=== PATIENT | male | born 1970 | race African-American/Black ===

== ENCOUNTER 2018-08-06 08:05 | Observation (INO) | payer MEDICARE ==
[2018-08-06 08:26] VITALS: BMI 27.2
--- NOTE | 2018-08-06 08:43 | PDOC ---
History of Present Illness - General Chief Complaint: Blood Pressure Problem Stated Complaint: BLOOD PRESSURE PROBLEM, BLURRY VISION History Source: Patient Exam Limitations: No Limitations - History of Present Illness Initial Comments: 08/06/18 09:02 47 yo M with a hx of HTN (no compliance with medication; name unknown) presents to the emergency department with concerns with high blood pressure. He states his BP was elevated to 191/116 2 days ago (had 1x vomiting episode) and took 1 anti-HTN medication (name unknown last night) with a BP of 158/94 this morning. This morning, he was complaining of headache and blurry vision that have since resolved. Subsequently, he also has complaints of a intermittent lower left chest wall pain, 4/10, burning sensation, without radiation, and has been occurring at least for 1 week. He had a stress test for chest pain 4 years ago and a cath 2 years ago without knowing the results. Endorses that he gets SOB and diaphoresis with these episodes (not currently). Denies acid reflux. Denies the following: fever, chills, nausea, vomiting, abdominal pain, dysuria, hematuria, diarrhea, hematochezia, melena, and leg pain/swelling. Past History - Past Medical History Allergies/Adverse Reactions: Allergies Allergy/AdvReac Type Severity Reaction Status Date / Time Iodinated Contrast- Oral and Allergy wheezing, Verified 08/06/18 08:18 IV Dye difficulty breathing Penicillins AdvReac Difficulty Verified 08/06/18 08:18 Breathing, wheezing Home Medications: Ambulatory Orders Diltiazem HCl [Diltiazem 24Hr ER] 180 mg PO DAILY 30 Days #30 cap.er.24h Lisinopril [Prinivil] 10 mg PO DAILY #30 tablet 09/04/17 Azithromycin [Zithromax -] 250 mg PO UTDICT #6 tab 09/06/17 Amlodipine Besylate [Norvasc -] 5 mg PO DAILY 30 Days #30 tablet 08/07/18 Pantoprazole Sodium [Protonix -] 40 mg PO DAILY #30 tablet.ec 08/07/18 Amlodipine Besylate [Norvasc -] 10 mg PO DAILY 30 Days #30 tablet 08/08/18 Cardiac Disorders: No (stents) COPD: No HTN: Yes - Immunization History Immunization Up to Date: No (no flu) - Suicide/Smoking/Psychosocial Hx Smoking History: Current every day smoker Number of Cigarettes Smoked Daily: 2 Information on smoking cessation initiated: No 'Breaking Loose' booklet given: 09/12/14 Hx Alcohol Use: No Drug/Substance Use Hx: No Substance Use Type: None Review of Systems - Review of Systems Able to Perform ROS?: Yes Is the patient limited Iraqi proficient: No Constitutional: Yes: Diaphoresis. No: Chills, Fever HEENTM: Yes: Recent change in vision. No: Ear Pain, Nose Pain, Throat Pain, Throat Swelling, Mouth Pain Respiratory: Yes: Shortness of Breath. No: Cough, Orthopnea, Hemoptysis Cardiac (ROS): Yes: Chest Pain. No: Lightheadedness, Palpitations, Syncope, Chest Tightness ABD/GI: No: Constipated, Diarrhea, Difficulty Swallowing, Nausea, Poor Appetite , Poor Fluid Intake, Rectal Bleeding, Vomiting, Indigestion, Abdominal cramping , Tarry Stools : No: Burning, Dysuria, Frequency, Hematuria, Incontinence Musculoskeletal: No: Back Pain, Joint Pain, Neck Pain Integumentary: No: Rash Neurological: Yes: Headache. No: Numbness Psychiatric: No: Stressors Endocrine: No: Change in Weight Hematologic/Lymphatic: No: Anemia *Physical Exam - Vital Signs Last Vital Signs Temp Pulse Resp BP Pulse Ox 98.1 F 61 18 147/94 100 08/06/18 08:05 08/06/18 08:05 08/06/18 08:05 08/06/18 08:05 08/06/18 08:05 - Physical Exam General Appearance: Yes: Nourished, Appropriately Dressed. No: Apparent Distress HEENT: positive: EOMI, IVON, Normal ENT Inspection, Normal Voice, Symmetrical, TMs Normal, Pharynx Normal. negative: Scleral Icterus (R), Scleral Icterus (L) , Pharyngeal Erythema, Sinus Tenderness, Excessive drooling Neck: positive: Trachea midline. negative: Tender, Lymphadenopathy (R), Lymphadenopathy (L), Tender lateral, Tender midline Respiratory/Chest: positive: Lungs Clear, Normal Breath Sounds. negative: Chest Tender, Respiratory Distress, Accessory Muscle Use, Decreased Breath Sounds, Paradoxal Breathing, Crackles, Rales, Rhonchi, Stridor, Wheezing Cardiovascular: positive: Regular Rhythm, Regular Rate, S1, S2. negative: Systolic Murmur Gastrointestinal/Abdominal: positive: Normal Bowel Sounds, Flat, Soft. negative : Tender, Organomegaly, Pulsatile Mass Lymphatic: negative: Adenopathy Musculoskeletal: positive: Normal Inspection. negative: CVA Tenderness Extremity: positive: Normal Capillary Refill, Normal Inspection, Normal Range of Motion. negative: Tender, Cyanosis, Swelling, Calf Tenderness Integumentary: positive: Normal Color, Dry, Warm. negative: Cold, Clammy, Rash , Swelling Neurologic: positive: clipman II-XII NML intact, Fully Oriented, Alert, Normal Mood/ Affect, Normal Response, Motor Strength 5/5. negative: Sensory Deficit Moderate Sedation - Procedure Monitoring Vital Signs: Procedure Monitoring Vital Signs Temperature 98.1 F 08/06/18 08:05 Pulse Rate 61 08/06/18 08:05 Respiratory Rate 18 08/06/18 08:05 Blood Pressure 147/94 08/06/18 08:05 O2 Sat by Pulse Oximetry (%) 100 08/06/18 08:05 ED Treatment Course - LABORATORY CBC & Chemistry Diagram: 08/08/18 06:32 08/08/18 06:32 Medical Decision Making - Medical Decision Making 47 yo M with a hx of HTN (no compliance with medication; name unknown) presents to the emergency department with concerns with high blood pressure. Initial vitals": Initial Vital Signs Temp Pulse Resp BP Pulse Ox 98.1 F 61 18 147/94 100 08/06/18 08:05 08/06/18 08:05 08/06/18 08:05 08/06/18 08:05 08/06/18 08:05 *DC/Admit/Observation/Transfer - Discharge Dispostion Disposition: HOME Condition at time of disposition: Stable - Prescriptions - Referrals - Patient Instructions - Post Discharge Activity
[2018-08-06] MEDS ORDERED: ASPIRIN 81 MG CHEWABLE TABLETS PO ONE (09:20)
[2018-08-06] MEDS ORDERED: NITROGLYCERIN SUBLINGUAL 1/150 0.4 MG TAB SL ONE ×2 (09:20→09:31)
--- NOTE | 2018-08-06 09:36 | PDOC ---
Attending Attestation - Resident Resident Name: Carlos Bush - ED Attending Attestation I have performed the following: I have examined & evaluated the patient, The case was reviewed & discussed with the resident, I agree w/resident's findings & plan, Exceptions are as noted - HPI HPI: 08/06/18 09:31 47 yo male h/o htn, , prior smoking, noncompliant with medication here with c/o headache and blurry vision and intermittent chest pain for one month. pt states he has had a cath and stress in the past but cant remember the results. 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 pain described intermittent, usually while working, relieved with rest, occasionally at rest. last had it this am. does not have pain currently. pt states he was visiting a friend in the hospital his age who suffered a stroke, had nurse check his bp, and was elevated 190/ 116, and he was scared so came to ed. this am 158/94. no sob. no leg swelling. does have family h/o of mom with CABG in 50's. - Physicial Exam PE: 08/06/18 09:33 awake alert lungs clear bilaterally heart rrr no mrg abd soft nt nd. ext wwp no edema. no calf tenderness. no edema. 2 + symmetric pulses. nuero alert oriented x 3. 5/5 all four ext. - Medical Decision Making 08/06/18 09:35 differential acs, hypertensive emergency vs. urgency. end organ damage. lung process. plan cxr ekg trop cbc lytres. will give ntg for elevated bp and asa. pt chart revew has had a stress here, old ekg similar in appearance from 2016. will consult cardiology. Heart Score/ECG Review #1 General ECG Interpretation: Sinus Rhythm, Normal Rate, Normal Intervals Compared to previous ECG there are: No significant change (comparison 04/22/17 TWI I, AVL, II, III, AVF, V2 - V5.)
[2018-08-06] MEDS ORDERED: ASPIRIN COATED 81 MG TABLET.EC ONE (09:46)
[2018-08-06] MEDS ORDERED: NITROGLYCERIN SUBLINGUAL 1/150 0.4 MG TAB ONE (09:46)
[2018-08-06 11:03] LABS: BASO % 1.3 % (0-2.0); EOS % 4.2 % (0-4.5); HEMATOCRIT 43.9 % (35.4-49); HEMOGLOBIN 14.2 GM/dL (11.7-16.9); MCH 29.2 pg (25.7-33.7); MCHC 32.3 g/dl (32.0-35.9); MEAN CELL VOLUME 90.1 fl (80-96); MEAN PLT VOLUME 9.4 fl (7.5-11.1); MONO % 10.5 % (3.8-10.2); PLATELET COUNT 199 K/MM3 (134-434); RBC 4.87 M/mm3 (4.00-5.60); RDW 13.2 % (11.9-15.9); WHITE BLOOD COUNT 4.1 K/mm3 (4.0-10.0)
[2018-08-06 11:10] LABS: INR 1.04 (0.83-1.09); PROTHROMBIN TIME (PATIENT) 12.3 SEC (9.7-13.0)
[2018-08-06 11:12] LABS: ACTIVATED PTT 32.3 SECONDS (25.2-36.5)
[2018-08-06 11:26] LABS: ALBUMIN 3.8 g/dl (3.4-5.0); ALK PHOS 61 U/L (45-117); ANION GAP 8 MMOL/L (8-16); BILIRUBIN,TOTAL 0.9 mg/dL (0.2-1); BLOOD UREA NITROGEN 18 mg/dL (7-18); CALCIUM 8.8 mg/dL (8.5-10.1); CHLORIDE 107 mmol/L (98-107); CO2 26 mmol/L (21-32); CREATININE 1.3 mg/dL (0.55-1.3); GLUCOSE,RANDOM 83 mg/dL (74-106); POTASSIUM 4.5 mmol/L (3.5-5.1); SGOT/AST 23 U/L (15-37); SGPT/ALT 41 U/L (13-61); SODIUM 141 mmol/L (136-145); TOT PROT 7.3 g/dl (6.4-8.2)
--- NOTE | 2018-08-06 14:45 | HP ---
CHIEF COMPLAINT: PCP: HISTORY OF PRESENT ILLNESS: 47 yo M with PMHx of HTN and CAD presents with one month history of progressive chest pain and increased BP. He states for the past month he has been experiencing 5/10 constant non-radiating left chest wall burning sensation. He states that pain can last for up to a day and is associated with diaphoresis. Not related to activity and can occur at rest. He denies alleviating or aggravating factors. Pain is not reproducible on palpation. 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 Today SBP was 191 on home monitor which prompted trip to ER. He has not been on any medication for some time secondary to poor compliance and insurance issues. In 2014 he was seen here and stress test was done and was positive for lateral wall ischemia and he was transferred to [facility] for cath which he states was negative for significant blockage. He denies MORENO, palpitations, abdominal pain, nausea, vomiting, fever or chills. No recent illness. ER course was notable for: (1)EGK shows (2)Trop (-) x1 (3)ASA and Nitro administered. Recent Travel: Denies PAST MEDICAL HISTORY:HTN, CAD PAST SURGICAL HISTORY:cardiac cath [facility] 2014 Social History: Smoking: quit 4 yrs ago. only smokes an occasional cigar. Alcohol:social Drugs: denies Family History: Mother with CABG in her 50's Allergies Iodinated Contrast- Oral and IV Dye Allergy (Verified 08/06/18 08:18) wheezing, difficulty breathing had one episode when he was a child ,verified from his mother Penicillins Adverse Reaction (Verified 08/06/18 08:18) Difficulty Breathing, wheezing swelling of throat HOME MEDICATIONS: Home Medications Medication Instructions Recorded Lidocaine 5% Patch [Lidoderm Patch 1 patch TP DAILY #7 patch 07/29/16 -] Oxycodone HCl/Acetaminophen 1 - 2 tab PO Q6H PRN #12 tab MDD 4 07/29/16 [Percocet 5-325 mg Tablet] Valacyclovir HCl [Valtrex] 1,000 mg PO TID #21 tablet 07/29/16 REVIEW OF SYSTEMS CONSTITUTIONAL: Absent: fever, chills, diaphoresis, generalized weakness, malaise, loss of appetite, weight change HEENT: Absent: rhinorrhea, nasal congestion, throat pain, throat swelling, difficulty swallowing, mouth swelling, ear pain, eye pain, visual changes CARDIOVASCULAR: chest pain Absent: , syncope, palpitations, irregular heart rate, lightheadedness, peripheral edema RESPIRATORY: Absent: cough, shortness of breath, dyspnea with exertion, orthopnea, wheezing, stridor, hemoptysis GASTROINTESTINAL: Absent: abdominal pain, abdominal distension, nausea, vomiting, diarrhea, constipation, melena, hematochezia GENITOURINARY: Absent: dysuria, frequency, urgency, hesitancy, hematuria, flank pain, genital pain MUSCULOSKELETAL: Absent: myalgia, arthralgia, joint swelling, back pain, neck pain SKIN: Absent: rash, itching, pallor HEMATOLOGIC/IMMUNOLOGIC: Absent: easy bleeding, easy bruising, lymphadenopathy, frequent infections ENDOCRINE: Absent: unexplained weight gain, unexplained weight loss, heat intolerance, cold intolerance NEUROLOGIC: Absent: headache, focal weakness or paresthesias, dizziness, unsteady gait, seizure, mental status changes, bladder or bowel incontinence PSYCHIATRIC: Absent: anxiety, depression, suicidal or homicidal ideation, hallucinations. PHYSICAL EXAMINATION Vital Signs - 24 hr 08/06/18 08:05 Temperature 98.1 F Pulse Rate 61 Respiratory 18 Rate Blood Pressure 147/94 O2 Sat by Pulse 100 Oximetry (%) GENERAL: AAOx3, NAD HEAD: NCAT EYES: PERRLA, EOMI, sclera anicteric, conjunctiva clear. No lid lag. EARS, NOSE, THROAT: Moist mucous membranes. NECK: supple, no JVD LUNGS: CTAB. No wheezes, and no crackles. No accessory muscle use. HEART: RRR, normal S1 and S2 without murmur, rub or gallop. ABDOMEN: Soft, NTND,NABS, no guarding, no rebound, no masses. MUSCULOSKELETAL: Normal range of motion at all joints. No bony deformities or tenderness. No CVA tenderness. LOWER EXTREMITIES: 2+ pulses, warm, well-perfused. No calf tenderness. No peripheral edema. NEUROLOGICAL: Cranial nerves II-XII intact. Normal speech. gait not observed PSYCHIATRIC: Cooperative. Good eye contact. Appropriate mood and affect. SKIN: Warm, dry, normal turgor, no rashes or lesions noted, normal capillary refill. Laboratory Results - last 24 hr 08/06/18 08/06/18 08/06/18 10:30 10:30 10:30 WBC 4.1 RBC 4.87 Hgb 14.2 Hct 43.9 MCV 90.1 MCH 29.2 MCHC 32.3 RDW 13.2 Plt Count 199 MPV 9.4 Absolute Neuts (auto) 1.7 Neutrophils % 41.0 L Lymphocytes % 43.0 H Monocytes % 10.5 H Eosinophils % 4.2 Basophils % 1.3 Nucleated RBC % 0 PT with INR 12.30 INR 1.04 PTT (Actin FS) 32.3 Sodium 141 Potassium 4.5 Chloride 107 Carbon Dioxide 26 Anion Gap 8 BUN 18 Creatinine 1.3 Creat Clearance w eGFR 58.67 Random Glucose 83 Calcium 8.8 Total Bilirubin 0.9 AST 23 ALT 41 Alkaline Phosphatase 61 Creatine Kinase 320 H Creatine Kinase Index 0.9 CK-MB (CK-2) 2.9 Troponin I < 0.02 Total Protein 7.3 Albumin 3.8 Blood Type Antibody Screen 08/06/18 08/06/18 10:30 12:11 WBC RBC Hgb Hct MCV MCH MCHC RDW Plt Count MPV Absolute Neuts (auto) Neutrophils % Lymphocytes % Monocytes % Eosinophils % Basophils % Nucleated RBC % PT with INR INR PTT (Actin FS) Sodium Potassium Chloride Carbon Dioxide Anion Gap BUN Creatinine Creat Clearance w eGFR Random Glucose Calcium Total Bilirubin AST ALT Alkaline Phosphatase Creatine Kinase Creatine Kinase Index CK-MB (CK-2) Troponin I Total Protein Albumin Blood Type O POSITIVE O POSITIVE Antibody Screen Negative ASSESSMENT/PLAN: 47 yo M with PMHx of HTN and CAD presents with chest pain and hypertension placed on observation to telemetry for further management. Problem List - Problem (1) Chest pain Assessment/Plan: may represent ACS vs. PE * Place on observation to telemetry * Cardiology consulted * trend trops x 2 Q6H * ASA given in ED * Nitro SL PRN pain * repeat EKG in AM * D-Dimer to r/o possible PE. * Echo pending. * Lipid profile pending. (2) Hypertension Assessment/Plan: He appears to have been on Lisinopril previously * Will restart Lisinopril 5mg PO daily * continuous monitoring. (3) DVT prophylaxis Visit type - Emergency Visit Emergency Visit: Yes Care time: The patient presented to the Emergency Department on the above date and was hospitalized for further evaluation of their emergent condition. - New Patient This patient is new to me today: Yes Date on this admission: 08/06/18 - Critical Care Critical Care patient: No
--- NOTE | 2018-08-06 14:59 | PN ---
Teaching Attending Note Name of Resident: Quinn Carolina ATTENDING PHYSICIAN STATEMENT I saw and evaluated the patient. I reviewed the resident's note and discussed the case with the resident. I agree with the resident's findings and plan as documented. SUBJECTIVE: Comfortable chest pain on Left infrmamarry area OBJECTIVE: Vital Signs Period Temp Pulse Resp BP Sys/Milner Pulse Ox Last 24 Hr 98.1 F-98.5 F 61-65 16-18 130-147/86-94 96-100 HEENT: Mm moist, no anemia, PERRLA EOMI NECK: No JVd No Bruit CHEST: non tender CTA B/L CVS: S1S2 R no m/g/r ABD: No distention non tender Bs + EXT: No edema feet, no calf tenderness, Pulses + MEDICAL BILLING COORDINATOR: AOX3 non focal CBC, BMP 08/06/18 10:30 08/06/18 10:30 Trop I -ve X1 CXR: No infiltrate EKG: LVHS at 60 no interval changes ASSESSMENT AND PLAN: 47 yrs Problem List - Problems (1) Chest pain Assessment/Plan: Present with Left sided chest Pian previous stress test + on 09/14 shows Lat Ischemai as per patient subsequently had Cath at [facility] and no intervention was done unsure about result, 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 this chest pain is atypical no c/o SOB LE swelling , yesterday BP was very high at home he took previously prescribed BP pills today BP is in acceptable range considering abnormal EKG and risk factors admit to Tele for obs , Cardiology consult, serial Trop I ASA add BP meds HR 60 start on Lisinopril and Procardia 30 mg Lipid panel, HBA1C, ECHO normal EF, F/U D Jerod if + will consider CTA Code(s): R07.9 - CHEST PAIN, UNSPECIFIED (2) Hypertension Assessment/Plan: Add Procardia and Lisinopril Code(s): I10 - ESSENTIAL (PRIMARY) HYPERTENSION Qualifiers: Hypertension type: essential hypertension Qualified Code(s): I10 - Essential (primary) hypertension (3) Abnormal EKG Assessment/Plan: at base line LVHS Code(s): R94.31 - ABNORMAL ELECTROCARDIOGRAM [ECG] [EKG] (4) Left ventricular hypertrophy Assessment/Plan: as per EKG but ECHO shows normal valve, wall thickness and EF Code(s): I51.7 - CARDIOMEGALY
--- NOTE | 2018-08-06 15:00 | ECHO ---
Name: REE BOOTH Exam:Adult Echocardiogram Study Date: 08/06/2018 02:08 PM Age: 47 yrs Reason For Study: SYNCOPE Height: 74 in Weight: 212 lb BSA: 2.2 m2 MMode/2D Measurements & Calculations IVSd: 1.1 cm Ao root diam: 3.0 cm LVIDd: 3.6 cm ACS: 2.0 cm LVIDs: 2.7 cm LVPWd: 1.5 cm EDV(Teich): 53.1 ml LVOT diam: 2.0 cm ESV(Teich): 26.6 ml RV S Thomas: 13.4 cm/sec Doppler Measurements & Calculations Med Peak E' Thomas: 9.1 cm/sec Lat Peak E' Thomas: 6.9 cm/sec Left Ventricle Left ventricular systolic function is normal. Ejection Fraction = 55-60%. Right Ventricle The right ventricle is normal in size and function. Atria Normal left and right atrial size and function. Mitral Valve The mitral valve is normal in structure and function. There is no mitral valve stenosis. There is mil d mitral regurgitation. Tricuspid Valve The tricuspid valve is normal in structure and function. There is mild tricuspid regurgitation. Aortic Valve No hemodynamically significant valvular aortic stenosis. No aortic regurgitation is present. Pulmonic Valve The pulmonic valve is not well seen, but is grossly normal. There is no pulmonic valvular stenosis. T here is no pulmonic valvular regurgitation. Great Vessels The aortic root is normal size. Pericardium/Pleura There is no pericardial effusion. Interpretation Summary Left ventricular systolic function is normal. Ejection Fraction = 55-60%. The right ventricle is normal in size and function. There is mild mitral regurgitation. There is mild tricuspid regurgitation. No hemodynamically significant valvular aortic stenosis. There is no pericardial effusion. MD Ellison *Nina 08/06/2018 02:59 PM
[2018-08-06] MEDS ORDERED: FLU VACCINE QUAD 60 MCG/0.5 ML (MDV 18-19) IM ONE (17:28)
--- NOTE | 2018-08-06 19:05 | EKG ---
Test Reason : Blood Pressure : / mmHG Vent. Rate : 060 BPM Atrial Rate : 060 BPM P-R Int : 202 ms QRS Dur : 098 ms QT Int : 424 ms P-R-T Axes : 039 036 204 degrees QTc Int : 424 ms NORMAL SINUS RHYTHM LEFT VENTRICULAR HYPERTROPHY WITH REPOLARIZATION ABNORMALITY ABNORMAL ECG WHEN COMPARED WITH ECG OF 29-JUL-2016 05:54, NO SIGNIFICANT CHANGE WAS FOUND Confirmed by COBY PORTILLO MD ([id number]) on 08/06/2018 7:05:08 PM Referred By: Confirmed By:COBY PORTILLO MD
[2018-08-07 08:12] LABS: EOS % 4.7 % (0-4.5); HEMATOCRIT 44.8 % (35.4-49); HEMOGLOBIN 14.4 GM/dL (11.7-16.9); LYMPH % 47.2 % (8-40); MCH 29.4 pg (25.7-33.7); MCHC 32.2 g/dl (32.0-35.9); MEAN CELL VOLUME 91.2 fl (80-96); MEAN PLT VOLUME 9.2 fl (7.5-11.1); MONO % 10.4 % (3.8-10.2); NEUT % 36.7 % (42.8-82.8); PLATELET COUNT 192 K/MM3 (134-434); RBC 4.91 M/mm3 (4.00-5.60); RDW 13.2 % (11.9-15.9); WHITE BLOOD COUNT 4.3 K/mm3 (4.0-10.0)
--- NOTE | 2018-08-07 09:46 | PN ---
Progress Note, Physician Chief Complaint: No chest pain - Current Medication List Current Medications: Active Medications Aspirin (Asa -) 81 mg PO DAILY MITRA Metoprolol Tartrate (Lopressor -) 12.5 mg PO BID MITRA - Objective Vital Signs: Vital Signs Temperature 98.2 F 08/07/18 05:00 Pulse Rate 73 08/07/18 05:00 Respiratory Rate 20 08/07/18 05:00 Blood Pressure 146/94 08/07/18 05:00 O2 Sat by Pulse Oximetry (%) 100 08/07/18 06:00 HEENT: Mm moist, no anemia, PERRLA EOMI NECK: No JVd No Bruit CHEST: non tender CTA B/L CVS: S1S2 R no m/g/r ABD: No distention non tender Bs + EXT: No edema feet, no calf tenderness, Pulses + TRANSACTION COORDINATOR: AOX3 non focal Labs: CBC, BMP 08/07/18 06:50 INR, PTT INR 1.04 (0.83-1.09) 08/06/18 10:30 Problem List - Problems (1) Chest pain Assessment/Plan: Atypica chest pain previous cath -ve serial CE and ECHOunremarkable EKG remained non dynamic evaluted by Cardiology consult recommended PPI Code(s): R07.9 - CHEST PAIN, UNSPECIFIED (2) Hypertension Assessment/Plan: Add Procardia and Lisinopril Code(s): I10 - ESSENTIAL (PRIMARY) HYPERTENSION Qualifiers: Hypertension type: essential hypertension Qualified Code(s): I10 - Essential (primary) hypertension (3) Abnormal EKG Assessment/Plan: at base line LVHS Code(s): R94.31 - ABNORMAL ELECTROCARDIOGRAM [ECG] [EKG] (4) Left ventricular hypertrophy Assessment/Plan: as per EKG but ECHO shows normal valve, wall thickness and EF Code(s): I51.7 - CARDIOMEGALY (5) JOLLY (acute kidney injury) Assessment/Plan: Rising BUN Creat IV Hydration F/U BMP in am Code(s): N17.9 - ACUTE KIDNEY FAILURE, UNSPECIFIED
[2018-08-07 09:54] LABS: ALBUMIN 3.6 g/dl (3.4-5.0); ALK PHOS 58 U/L (45-117); ANION GAP 8 MMOL/L (8-16); BILIRUBIN,TOTAL 1.4 mg/dL (0.2-1); BLOOD UREA NITROGEN 19 mg/dL (7-18); CALCIUM 8.8 mg/dL (8.5-10.1); CHLORIDE 105 mmol/L (98-107); CHOLESTEROL 180 mg/dL (50-200); CO2 29 mmol/L (21-32); CREATININE 1.5 mg/dL (0.55-1.3); GLUCOSE,RANDOM 82 mg/dL (74-106); HDL CHOLESTEROL 40 mg/dL (40-60); MAGNESIUM 2.5 mg/dL (1.8-2.4); SGOT/AST 22 U/L (15-37); SGPT/ALT 39 U/L (13-61); SODIUM 143 mmol/L (136-145); TOT PROT 7.1 g/dl (6.4-8.2); TRIGLYCERIDES 104 mg/dL (0-150)
[2018-08-07] MEDS ORDERED: ASPIRIN 81 MG CHEWABLE TABLETS PO SCH (10:00)
[2018-08-07] MEDS ORDERED: METOPROLOL TARTRATE 25 MG TABLET (FP) PO SCH (10:00)
--- NOTE | 2018-08-07 11:34 | CON.CARD ---
Consult Consult Specialty:: cardio - History of Present Illness Chief Complaint: cp History of Present Illness: 47 M here with CP. was here with different cp sx's in 2015. had nuclear stress test suggestive of ischemia. transferred for cath by dr george/craig ([facility]), pt states told no blockages and no stent place. he never followed up with them after cath (confirmed today by dr george). sees no pmd. was given meds on cath discharge but stopped taking them. 2 wks ago began feeling burning sensation localized to epigastrium/LUQ. not radiating. assctd diaphoresis with this sometimes. no assctd LH/sob. doesn't exercise or climb stairs, doesn't [address] however the pain is not exacerbated by lifting things or routine exertion/ activity. comes and goes on its own at rest frequently during these 2 wks, present much/ most of each day. ASSOCIATED WITH SOUR TASTE IN HIS MOUTH. hasn't noticed relation to timing of type of foods eaten home bp's recently started being checked, up to 190 + cigs: quit 1 mo ago social etoh no drugs +HTN--not treated denies HPL, DM FH: mother CABG ? 60s yo (still living) - Past Medical History [employer]: Yes: Other Cardio/Vascular: Yes: HTN - Alcohol/Substance Use Hx Alcohol Use: No - Smoking History Smoking history: Current every day smoker Have you smoked in the past 12 months: Yes Aproximately how many cigarettes per day: 2 Home Medications - Allergies Allergies/Adverse Reactions: Allergies Allergy/AdvReac Type Severity Reaction Status Date / Time Iodinated Contrast- Oral and Allergy wheezing, Verified 08/06/18 08:18 IV Dye difficulty breathing Penicillins AdvReac Difficulty Verified 08/06/18 08:18 Breathing, wheezing - Home Medications Home Medications: Ambulatory Orders NK [No Known Home Medication] 08/06/18 Family Disease History - Family Disease History Family Disease History: Heart Disease: Mother (MS-->CABG age 51) Review of Systems - Review of Systems Constitutional: denies: Chills, Fever Eyes: denies: Eye Pain HENT: denies: Nasal Congestion Neck: denies: Stiffness Cardiovascular: denies: Palpitations Respiratory: denies: Orthopnea, PND Gastrointestinal: denies: Diarrhea, Rectal Bleeding Genitourinary: denies: Burning, Hematuria Musculoskeletal: denies: Muscle Pain Integumentary: denies: Rash Neurological: denies: Numbness, Seizure, Syncope Endocrine: denies: Excessive Sweating Hematology/Lymphatic: denies: Excessive Bleeding Vital Signs: Vital Signs Temperature 98.2 F 08/07/18 05:00 Pulse Rate 73 08/07/18 05:00 Respiratory Rate 20 08/07/18 05:00 Blood Pressure 146/94 08/07/18 05:00 O2 Sat by Pulse Oximetry (%) 100 08/07/18 06:00 Constitutional: Yes: Well Nourished, No Distress Eyes: No: Sclera Icterus HENT: No: Nasal Congestion Neck: No: Decreased ROM Respiratory: Yes: CTA Bilaterally. No: Accessory Muscle Use Gastrointestinal: Yes: Normal Bowel Sounds. No: Distention, Hepatomegaly, Palpable Mass, Tenderness Cardiovascular: Yes: Regular Rate and Rhythm JVD: No Carotid Bruit: No PMI: Non-Displaced Heart Sounds: Yes: S1, S2. No: Gallop Murmur: No: Systolic Murmur, Diastolic Murmur Musculoskeletal: Yes: Other (No kyphosis) Extremities: No: Cool, Cyanosis Edema: No Peripheral Pulses: 2+ Left Carotid, 2+ Right Carotid, 2+ Left Doralis Pedis, 2+ Right Dorsalis Pedis Integumentary: No: Jaundice Neurological: Yes: Alert, Oriented (x3) Psychiatric: No: Agitated - Other Data Labs, Other Data: CBC, BMP 08/07/18 06:50 08/07/18 06:50 INR, PTT INR 1.04 (0.83-1.09) 08/06/18 10:30 Troponin, BNP 08/06/18 08/06/18 19:15 21:45 Troponin I < 0.02 < 0.02 Troponin, BNP 08/06/18 08/06/18 19:15 21:45 Troponin I < 0.02 < 0.02 Assessment/Plan ECG: NSR. LVH with marked repol abnormalities--not signif changed vs priors in 2014 and 2015 CXR: clear lungs/pleura, normal mediastinum Echo 08/06/18: nl LVSF. no LVH reported. nl RV. nl LA. nl valves. normal aorta root. no peric effusion. tele: NSR atypical CP: -sx's highly suggestive of GERD, with associated sour taste in mouth -trop neg x 3 -very unlikely cardiac ischemia given reportedly benign cath 3 yrs ago, young pt with low ASCVD risk, chronic nonexertional sx present much of the day for 2 wks straight with no clinical deterioration and normal cardiac enzymes -start PPI -will attempt to retrieve prior cath report (may need to wait until thursday) -if pt sx's resolve with PPI he may be able to be discharged with outpt f/u abnormal ECG: -? normal variant ( young male) -rule out non-obstructive HCM including apical variant. -echo here no signs asymmetric LVH per report, no mitral LETITIA -rec outpt f/u with us, cardiac MRI to confirm no occult HCM pattern HTN: -not compliant with PMD or cardio f/u -self-d/c'd prior meds -elevated at home recently, ? reactive sec to ongoing pain and anxiety about his heart -bp's here 130s > 140-150. observe trend HPL: -LDL 120. low CVD risk. would not rec long-term statin unless signif subclinical athero burden on prior cath JOLLY: -creat 1.3-->1.5 here -was 1.1 on prior admit in 2015 -? hypertensive etiology (burden of untreated HTN not documented in him) -plan per hospitalist
[2018-08-07] MEDS: PANTOPRAZOLE 40 MG TABLET (FP) PO SCH (12:09)
--- NOTE | 2018-08-07 14:10 | DS ---
Physical Examination Vital Signs: Vital Signs Temperature 97.5 F L 08/07/18 11:47 Pulse Rate 62 08/07/18 11:47 Respiratory Rate 20 08/07/18 11:47 Blood Pressure 153/94 08/07/18 11:47 O2 Sat by Pulse Oximetry (%) 100 08/07/18 09:00 Constitutional: Yes: Well Nourished, No Distress, Calm HENT: Yes: Atraumatic, Normocephalic, Other (MM moist no anemia) Cardiovascular: Yes: Regular Rate and Rhythm. No: Bruit, JVD, Gallop, Murmur, S1, S2 Respiratory: Yes: Regular, CTA Bilaterally Gastrointestinal: Yes: Normal Bowel Sounds, Soft Musculoskeletal: No: Back Pain, Joint Stiffness Extremities: No: Calf Tenderness Edema: No Peripheral Pulses: Left Doralis Pedis: 2+, Right Dorsalis Pedis: 2+ Neurological: Yes: Alert, Oriented, Cran Nerves II-XII Intact Labs: C CBC,CMP WBC 4.3 K/mm3 (4.0-10.0) 08/07/18 06:50 RBC 4.91 M/mm3 (4.00-5.60) 08/07/18 06:50 Hgb 14.4 GM/dL (11.7-16.9) 08/07/18 06:50 Hct 44.8 % (35.4-49) 08/07/18 06:50 MCV 91.2 fl (80-96) 08/07/18 06:50 MCH 29.4 pg (25.7-33.7) 08/07/18 06:50 MCHC 32.2 g/dl (32.0-35.9) 08/07/18 06:50 RDW 13.2 % (11.9-15.9) 08/07/18 06:50 Plt Count 192 K/MM3 (134-434) 08/07/18 06:50 MPV 9.2 fl (7.5-11.1) 08/07/18 06:50 Absolute Neuts (auto) 1.6 K/mm3 (1.5-8.0) 08/07/18 06:50 Neutrophils % 36.7 % (42.8-82.8) L 08/07/18 06:50 Lymphocytes % 47.2 % (8-40) H 08/07/18 06:50 Monocytes % 10.4 % (3.8-10.2) H 08/07/18 06:50 Eosinophils % 4.7 % (0-4.5) H 08/07/18 06:50 Basophils % 1.0 % (0-2.0) 08/07/18 06:50 Nucleated RBC % 0 % (0-0) 08/07/18 06:50 Sodium 143 mmol/L (136-145) 08/07/18 06:50 Potassium 5.0 mmol/L (3.5-5.1) 08/07/18 06:50 Chloride 105 mmol/L (98-107) 08/07/18 06:50 Carbon Dioxide 29 mmol/L (21-32) 08/07/18 06:50 Anion Gap 8 MMOL/L (8-16) 08/07/18 06:50 BUN 19 mg/dL (7-18) H 08/07/18 06:50 Creatinine 1.5 mg/dL (0.55-1.3) H 08/07/18 06:50 Creat Clearance w eGFR 49.74 (>60) 08/07/18 06:50 Random Glucose 82 mg/dL (74-106) 08/07/18 06:50 Hemoglobin A1c % 6.2 % (4.2-6.3) 08/07/18 06:50 Calcium 8.8 mg/dL (8.5-10.1) 08/07/18 06:50 Phosphorus 4.0 mg/dL (2.5-4.9) 08/07/18 06:50 Magnesium 2.5 mg/dL (1.8-2.4) H 08/07/18 06:50 Total Bilirubin 1.4 mg/dL (0.2-1) H 08/07/18 06:50 AST 22 U/L (15-37) 08/07/18 06:50 ALT 39 U/L (13-61) 08/07/18 06:50 Alkaline Phosphatase 58 U/L (45-117) 08/07/18 06:50 Creatine Kinase 320 IU/L (26-308) H 08/06/18 10:30 Creatine Kinase Index 0.9 % (0.0-5.0) 08/06/18 10:30 CK-MB (CK-2) 2.9 ng/mL (0.5-3.6) 08/06/18 10:30 Troponin I < 0.02 ng/ml (0.00-0.05) 08/06/18 21:45 Total Protein 7.1 g/dl (6.4-8.2) 08/07/18 06:50 Albumin 3.6 g/dl (3.4-5.0) 08/07/18 06:50 Triglycerides 104 mg/dL (0-150) 08/07/18 06:50 Cholesterol 180 mg/dL (50-200) 08/07/18 06:50 Total LDL Cholesterol 125 mg/dL (5-100) H 08/07/18 06:50 HDL Cholesterol 40 mg/dL (40-60) 08/07/18 06:50 TSH 1.11 uIU/ml (0.358-3.74) 08/07/18 06:50 EKG : LVHS at 60 same as base line CXR: No cardiomegaly no congestion ECHO: Normal EF no wall motion abnormality Discharge Summary Reason For Visit: CHEST PAIN Current Active Problems Atypical Chest Pain HTN Abnormal EKG LVH Hospital Course: 47 yrs old man admitted with atypical CP patient has H/O HTN and LVHS pattern EKG in the past evaluated, previous stress test + on 08/2014 at [facility] shows Lat Ischemai as per patient subsequently had Cath at [facility] and no intervention was done and prescribed with BP meds, patient is a truck shop mechanic drives long distances this chest pain is atypical no c/o SOB LE swelling , yesterday BP was at home he took previously prescribed BP pills today BP is in acceptable range considering abnormal EKG and risk factors admit to Tele for obs , serial Trop I X3 normal ,D Dimmers -ve .ECG: NSR. LVH with marked repol abnormalities--not signif changed vs priors in 2014 and 2015CXR: clear lungs/ pleura, normal mediating, Echo 08/06/18: nl LVSF. no LVH reported. nl RV. nl LA. nl valves. normal aorta root. no pericardial effusion.Evaluated by Cardiology consult recommended highly suggestive of GERD, very unlikely cardiac ischemia given reportedly benign cath 3 yrs ago, young pt with low ASCVD risk, chronic non-exertional sx present much of the day for 2 wks straight with no clinical deterioration and normal cardiac enzymes, started PPI, patient symptoms resolved outpt f/u with us, cardiac MRI to confirm no occult HCM pattern. JOLLY improved on Hyration. Condition: Stable - Instructions Diet, Activity, Other Instructions: Low salt low cholesterol Referrals: Kwasi Tripathi MD [Staff Physician] - 2 Weeks Tonny Pepper MD [Staff Physician] - 1 Month Disposition: HOME - Home Medications Comprehensive Discharge Medication List: Ambulatory Orders Amlodipine Besylate [Norvasc -] 10 mg PO DAILY 30 Days #30 tablet 08/07/18 Pantoprazole Sodium [Protonix -] 40 mg PO DAILY #30 tablet.ec 08/07/18
[2018-08-07] MEDS ORDERED: amLODIPine BESYLATE 5 MG TABLET (FP) PO SCH (14:15)
[2018-08-07] MEDS ORDERED: SODIUM CHLORIDE 1,000 ML IV SCH (17:15)
--- NOTE | 2018-08-07 21:16 | EKG ---
Test Reason : Blood Pressure : / mmHG Vent. Rate : 071 BPM Atrial Rate : 071 BPM P-R Int : 184 ms QRS Dur : 096 ms QT Int : 418 ms P-R-T Axes : 048 023 173 degrees QTc Int : 454 ms NORMAL SINUS RHYTHM LEFT VENTRICULAR HYPERTROPHY WITH REPOLARIZATION ABNORMALITY ABNORMAL ECG WHEN COMPARED WITH ECG OF 06-AUG-2018 09:06, NO SIGNIFICANT CHANGE WAS FOUND Confirmed by COBY PORTILLO MD ([id number]) on 08/07/2018 9:16:37 PM Referred By: Confirmed By:COBY PORTILLO MD
[2018-08-08 08:22] LABS: BASO % 0.9 % (0-2.0); EOS % 4.8 % (0-4.5); HEMATOCRIT 40.3 % (35.4-49); HEMOGLOBIN 14.1 GM/dL (11.7-16.9); LYMPH % 41.7 % (8-40); MCH 31.3 pg (25.7-33.7); MCHC 34.9 g/dl (32.0-35.9); MEAN CELL VOLUME 89.7 fl (80-96); MEAN PLT VOLUME 9.7 fl (7.5-11.1); NEUT % 42.6 % (42.8-82.8); PLATELET COUNT 200 K/MM3 (134-434); RBC 4.49 M/mm3 (4.00-5.60); RDW 13.1 % (11.9-15.9); WHITE BLOOD COUNT 4.8 K/mm3 (4.0-10.0)
[2018-08-08 08:53] LABS: ANION GAP 9 MMOL/L (8-16); BLOOD UREA NITROGEN 16 mg/dL (7-18); CALCIUM 8.3 mg/dL (8.5-10.1); CHLORIDE 109 mmol/L (98-107); CO2 24 mmol/L (21-32); CREATININE 1.3 mg/dL (0.55-1.3); GLUCOSE,RANDOM 83 mg/dL (74-106); POTASSIUM 4.3 mmol/L (3.5-5.1); SODIUM 142 mmol/L (136-145)
--- NOTE | 2018-08-08 09:37 | PN ---
Progress Note, Physician Chief Complaint: abd pain History of Present Illness: epigastric abd burning resolved completely. no cp. no palpitations. no sob. no syncope - Current Medication List Current Medications: Active Medications Amlodipine Besylate (Norvasc -) 5 mg PO DAILY [facility] Last Admin: 08/07/18 15:15 Dose: 5 mg Sodium Chloride (Normal Saline -) 1,000 mls @ 75 mls/hr IV ASDIR [facility] Last Admin: 08/07/18 17:33 Dose: 75 mls/hr Pantoprazole Sodium (Protonix -) 40 mg PO DAILY [facility] Last Admin: 08/07/18 12:09 Dose: 40 mg - Objective Vital Signs: Vital Signs Temperature 97.8 F 08/08/18 05:19 Pulse Rate 62 08/08/18 05:19 Respiratory Rate 20 08/08/18 05:19 Blood Pressure 125/85 08/08/18 05:19 O2 Sat by Pulse Oximetry (%) 100 08/08/18 05:19 Constitutional: Yes: Well Nourished, No Distress, Calm Cardiovascular: Yes: Regular Rate and Rhythm, S1, S2. No: Gallop, Murmur Respiratory: Yes: Regular, CTA Bilaterally. No: Accessory Muscle Use, Rales, Wheezes Extremities: No: Cold Edema: No Neurological: Yes: Alert, Oriented Psychiatric: No: Agitated Labs: CBC, BMP 08/08/18 06:32 08/08/18 06:32 INR, PTT INR 1.04 (0.83-1.09) 08/06/18 10:30 Assessment/Plan ECG: NSR. LVH with marked repol abnormalities--not signif changed vs priors in 2014 and 2015 CXR: clear lungs/pleura, normal mediastinum Echo 08/06/18: nl LVSF. no LVH reported. nl RV. nl LA. nl valves. normal aorta root. no peric effusion. tele: NSR atypical CP: -sx's c/w GERD, with associated sour taste in mouth and resolved with PPI -trop neg x 3 -very unlikely cardiac ischemia given reportedly benign cath 3 yrs ago, young pt with low ASCVD risk, chronic nonexertional sx present much of the day for 2 wks straight with no clinical deterioration and normal cardiac enzymes -rpt stress test not indicated given low pre-test prob. pt advised to f/u as outpt (with us or, if finances require, with [facility]) abnormal ECG: -? normal variant ( young male) -rule out non-obstructive HCM including apical variant. -echo here no signs asymmetric LVH per report, no mitral LETITIA -pt advised that to be confident there is no genetic heart condition that can be dangerous in the future, he eventually needs to have cardiac MRI. however given he has no sx's (and also specifically denies family h/o suspicious syncope /sudden to me today), and normal echo, this is an elective workup. -he states he is in the process of purchasing health insurance and verbalizes understanding of the importance of eventually following up with us in office to arrange for completion of the w/u HTN: -not compliant with PMD or cardio f/u -self-d/c'd prior meds -elevated at home recently, ? reactive sec to ongoing pain and anxiety about his heart -bp's here 130s > 140-150--continue amlodipine HPL: -LDL 120. low CVD risk. would not rec long-term statin unless signif subclinical athero burden on prior cath JOLLY: -creat 1.31.5 here, stable
[2018-08-08] MEDS ORDERED: amLODIPine BESYLATE 5 MG TABLET (FP) PO SCH (09:43)
[2018-08-08] MEDS: PANTOPRAZOLE 40 MG TABLET (FP) PO SCH (10:05)
[2018-08-08 10:10] VITALS: BP 153/98; PULSE 66; TEMP 98.1
== END 2018-08-08 10:55 | disposition home or self-care (01) ==
LOC: JER 08:05 → JERBED 13:19 → J4W 17:49
PROVIDERS: ADMIT Internal Medicine; ATTEND Internal Medicine
DX: R07.9 Chest pain, unspecified (principal); I11.9 Hypertensive heart disease without heart failure; R94.31 Abnormal electrocardiogram [ECG] [EKG]; N17.9 Acute kidney failure, unspecified; E78.5 Hyperlipidemia, unspecified; Z98.61 Coronary angioplasty status; F17.210 Nicotine dependence, cigarettes, uncomplicated; Z88.0 Allergy status to penicillin; Z91.041 Radiographic dye allergy status
CPT/HCPCS: 36415; 71046-TC-FY; 80048; 80053; 80061; 82550; 82553; 83036; 83721; 83735; 84100; 84443; 84484; 85025; 85379; 85610; 85730; 86850; 86900; 86901; 93005; 93010; 93306-TC; 99283-25; G0378; J7030

== ENCOUNTER 2018-08-09 22:54 | Emergency (ER) | payer SELFPAY ==
--- NOTE | 2018-08-09 23:15 | PDOC ---
History of Present Illness - General Chief Complaint: Blood Pressure Problem Stated Complaint: BLOOD PRESURE PROBLEM Time Seen by Provider: 08/09/18 23:14 History Source: Patient Exam Limitations: No Limitations - History of Present Illness Initial Comments: 08/09/18 23:32 47 year old male with PMH HTN, GERD presented to ED for high blood pressure. Pt stated he checked his BP today around 3PM and it was in the 160s systolic, he took two amlodipine 10 mg, but his blood pressure continued to increase. He admitted to headache (left sided, constant, throbbing, no alleviating/ aggravating factors, nonradiating) and LUQ pain (constant, burning, nonradiaitng , aggravated by not eating, no alleviating factors). He stated the pain feels similar to his prior GERD. He stated he took his protonix today without relief of symptoms. He denied chest pain, shortness of breath, palpitations, cough, lower extremity swelling, weakness, numbness, tingling. Pt was admitted to [facility] for HTN urgency and LVHS pattern on EKG 08/06/18-. Serial troponins were negative. ECHO 08/06/18 nl LVSF, EF 55-60%. no LVH reported. diagnosed with GERD. Discharged with Amlodipine 10 mg daily and pantoprazole 40 mg daily. Pt did not have PCP, was given one upon discharge, but has not followed up since discharge. Past History - Past Medical History Allergies/Adverse Reactions: Allergies Allergy/AdvReac Type Severity Reaction Status Date / Time Iodinated Contrast- Oral and Allergy wheezing, Verified 08/09/18 23:14 IV Dye difficulty breathing Penicillins AdvReac Difficulty Verified 08/09/18 23:14 Breathing, wheezing Home Medications: Ambulatory Orders Diltiazem HCl [Diltiazem 24Hr ER] 180 mg PO DAILY 30 Days #30 cap.er.24h Lisinopril [Prinivil] 10 mg PO DAILY #30 tablet 09/04/17 Azithromycin [Zithromax -] 250 mg PO UTDICT #6 tab 09/06/17 Amlodipine Besylate [Norvasc -] 5 mg PO DAILY 30 Days #30 tablet 08/07/18 Pantoprazole Sodium [Protonix -] 40 mg PO DAILY #30 tablet.ec 08/07/18 Amlodipine Besylate [Norvasc -] 10 mg PO DAILY 30 Days #30 tablet 08/08/18 Anemia: No Asthma: No Cancer: No Cardiac Disorders: No (stents) CVA: No COPD: No CHF: No Dementia: No Diabetes: No GI Disorders: No Disorders: No HTN: Yes Hypercholesterolemia: No Liver Disease: No Seizures: No Thyroid Disease: No - Surgical History Abdominal Surgery: No Appendectomy: No Cardiac Surgery: Yes (Catheterization w/balloon) Cholecystectomy: No Lung Surgery: No Neurologic Surgery: No Orthopedic Surgery: No - Immunization History Immunization Up to Date: No (no flu) - Suicide/Smoking/Psychosocial Hx Smoking History: Never smoked Have you smoked in the past 12 months: No Number of Cigarettes Smoked Daily: 2 If you are a former smoker, when did you quit?: 08/31/17 'Breaking Loose' booklet given: 09/12/14 Hx Alcohol Use: No Drug/Substance Use Hx: No Substance Use Type: None, Alcohol Hx Substance Use Treatment: No Review of Systems - Review of Systems Able to Perform ROS?: Yes Comments:: 08/09/18 23:35 General: denied fever, chills, night sweats, generalized weakness. HEENT: denied sore throat, rhinorrhea, ear pain. Heart: denied chest pain, palpitations, syncope, lower extremity swelling, diaphoresis. Respiratory: denied shortness of breath, cough, sputum production, hemoptysis. Abdomen: admitted to abdominal pain. denied nausea, vomiting, diarrhea, constipation, blood in stool. : denied dysuria, increased urinary frequency, hematuria, urinary incontinence , flank pain. Back: denied back pain. Musculoskeletal: denied joint pain, muscle pain, joint swelling. Neurological: admitted to headache. denied dizziness, numbness, tingling, weakness. Skin: denied rash, laceration, abrasion. *Physical Exam - Physical Exam Comments: 08/09/18 23:36 Constitutional: Well-nourished, Well-developed, appearing stated age. HEENT: head is normocephalic, atraumatic. EOMI. PERRLA. Neck: supple. Full ROM. Heart: regular rhythm. no murmurs, rubs or gallops. Lungs: clear to auscultation bilaterally. no crackles, rhonchi or wheezing. no stridor. Abdomen: soft, nontender. normal bowel sounds. no rebound, guarding, masses. Extremities: Peripheral pulses intact. No lower extremity edema. Neurological: Alert. Oriented x3. CN2-12 intact. 5/5 strength all extremities. Full sensation all extremities and bilateral face. Romberg negative. Finger to nose normal. Gait normal. Psych: awake, alert, oriented x3. Follows commands. Answers questions appropriately. ED Treatment Course - LABORATORY CBC & Chemistry Diagram: 08/09/18 23:40 08/10/18 00:34 Medical Decision Making - Medical Decision Making 08/09/18 23:36 47 year old male with above PMH presented to ED for HTN associated with epigastric pain and headache. Initial Vital Signs Temp Pulse Resp BP Pulse Ox 97.9 F 81 18 181/116 H 99 08/09/18 23:14 08/09/18 23:14 08/09/18 23:14 08/09/18 23:14 08/09/18 23:14 Afebrile. No tachycardia. No tachypnea. Hypertensive. No hypoxia on room air. Medications ordered: pepcid, maalox, tylenol. Labs ordered: CBC, CMP, BNP, cardiac enzymes Imaging ordered: CXR EKG performed at 2351: rate 76, regular rhythm, normal intervals, normal axis, LVH. Similar to prior 08/07/18. 08/10/18 00:21 CBC WBC 7.0 K/mm3 (4.0-10.0) 08/09/18 23:40 RBC 4.91 M/mm3 (4.00-5.60) 08/09/18 23:40 Hgb 15.2 GM/dL (11.7-16.9) 08/09/18 23:40 Hct 43.6 % (35.4-49) 08/09/18 23:40 MCV 88.7 fl (80-96) 08/09/18 23:40 MCH 30.9 pg (25.7-33.7) 08/09/18 23:40 MCHC 34.8 g/dl (32.0-35.9) 08/09/18 23:40 RDW 12.8 % (11.9-15.9) 08/09/18 23:40 Plt Count 223 K/MM3 (134-434) 08/09/18 23:40 MPV 9.6 fl (7.5-11.1) 08/09/18 23:40 Absolute Neuts (auto) 3.0 K/mm3 (1.5-8.0) 08/09/18 23:40 Neutrophils % 43.4 % (42.8-82.8) 08/09/18 23:40 Lymphocytes % 43.1 % (8-40) H 08/09/18 23:40 Monocytes % 8.0 % (3.8-10.2) 08/09/18 23:40 Eosinophils % 4.5 % (0-4.5) 08/09/18 23:40 Basophils % 1.0 % (0-2.0) 08/09/18 23:40 Nucleated RBC % 0 % (0-0) 08/09/18 23:40 No leukocytosis. No anemia. No thrombocytopenia. 08/10/18 00:40 Lab reported COAGs QNS, jungle top hemolyzed. Labs reordered. CXR: no cardiomegaly. sharp costophrenic angles. no pulmonary vascular congestion. similar to prior 08/06/18. 08/10/18 01:07 Vital Signs Temperature 97.8 F 08/09/18 23:15 Pulse Rate 80 08/09/18 23:15 Respiratory Rate 18 08/09/18 23:15 Blood Pressure 159/106 H 08/10/18 01:05 O2 Sat by Pulse Oximetry (%) 100 08/09/18 23:15 Hypertensive, but improved with pain control. 08/10/18 01:12 CMP Sodium 139 mmol/L (136-145) 08/10/18 00:34 Potassium 3.8 mmol/L (3.5-5.1) 08/10/18 00:34 Chloride 107 mmol/L (98-107) 08/10/18 00:34 Carbon Dioxide 26 mmol/L (21-32) 08/10/18 00:34 Anion Gap 7 MMOL/L (8-16) L 08/10/18 00:34 BUN 19 mg/dL (7-18) H 08/10/18 00:34 Creatinine 1.2 mg/dL (0.55-1.3) 08/10/18 00:34 Creat Clearance w eGFR > 60 (>60) 08/10/18 00:34 Random Glucose 107 mg/dL (74-106) H 08/10/18 00:34 Calcium 8.2 mg/dL (8.5-10.1) L 08/10/18 00:34 Total Bilirubin 0.5 mg/dL (0.2-1) 08/10/18 00:34 AST 25 U/L (15-37) 08/10/18 00:34 ALT 36 U/L (13-61) 08/10/18 00:34 Alkaline Phosphatase 68 U/L (45-117) 08/10/18 00:34 Creatine Kinase 386 IU/L (26-308) H 08/10/18 00:34 Troponin I < 0.02 ng/ml (0.00-0.05) 08/10/18 00:34 B-Natriuretic Peptide 65.3 pg/ml (5-125) 08/10/18 00:34 Total Protein 7.5 g/dl (6.4-8.2) 08/10/18 00:34 Albumin 3.6 g/dl (3.4-5.0) 08/10/18 00:34 No electrolyte abnormalities. No JOLLY. Cr at baseline. CK mildly elevated. Normal troponin. normal BNP. Pt reported improvement of symptoms. Pt given PCP follow up appt with Dr. Tripathi 08/10 at 1030 AM. Pt given information with address and phone number and informed of importance of following up. Pt given copies of lab work. Pt to be discharged. *DC/Admit/Observation/Transfer Diagnosis at time of Disposition: Hypertension, Headache - Discharge Dispostion Condition at time of disposition: Improved Decision to Admit order: No - Referrals Referrals: [facility] [place] [facility] [place] [Provider Group] Kwasi Tripathi MD [Staff Physician] - - Patient Instructions Printed Discharge Instructions: DASH Diet Helps Maintain a Healthy Blood Pressure, Recommendations to Help Prevent High Blood Pressure, DI for High Blood Pressure, Low-Sodium Diet, How to Monitor Your Blood Pressure at Home Additional Instructions: You were seen today for high blood pressure. You lab work was similar to prior lab work done during you admission to the hospital. Your EKG was similar to prior. Your blood pressure reduced with pain control. Take Tylenol over the counter for your headache, take as advised on label. I have set up an appointment with a primary care doctor, Dr. Tripathi, Friday 08/10 at 1030AM. Do not miss this appointment. Return to the Emergency Department for blood pressure >200/100-120, increasing headache, blurry vision, chest pain, shortness of breath, lower leg swelling, or any other new, worsening or concerning symptoms. - Post Discharge Activity
[2018-08-09 23:16] VITALS: BMI 27.6
[2018-08-09] MEDS ORDERED: ACETAMINOPHEN 325 MG TABLET (FP) PO ONE (23:34)
[2018-08-09] MEDS ORDERED: FAMOTIDINE 20 MG/50 ML IVPB 20 MG/50 ML MG IVPB ONE ×2 (23:34→23:55)
[2018-08-09] MEDS ORDERED: MAG HYDROX/AL HYDROX/SIMETH 30 ML UNIT-DOSE CUP PO ONE (23:34)
[2018-08-09] MEDS ORDERED: SODIUM CHLORIDE 1,000 ML IV STA (23:44)
[2018-08-09] MEDS ORDERED: MAG HYDROX/AL HYDROX/SIMETH 30 ML UNIT-DOSE CUP ONE (23:55)
[2018-08-09] MEDS ORDERED: ACETAMINOPHEN 325 MG TABLET (FP) ONE (23:55)
[2018-08-10 00:15] LABS: EOS % 4.5 % (0-4.5); HEMATOCRIT 43.6 % (35.4-49); HEMOGLOBIN 15.2 GM/dL (11.7-16.9); LYMPH % 43.1 % (8-40); MCH 30.9 pg (25.7-33.7); MCHC 34.8 g/dl (32.0-35.9); MEAN CELL VOLUME 88.7 fl (80-96); MEAN PLT VOLUME 9.6 fl (7.5-11.1); NEUT % 43.4 % (42.8-82.8); PLATELET COUNT 223 K/MM3 (134-434); RBC 4.91 M/mm3 (4.00-5.60); RDW 12.8 % (11.9-15.9)
--- NOTE | 2018-08-10 00:35 | PDOC ---
Attending Attestation - Resident Resident Name: Jessi Medina - ED Attending Attestation I have performed the following: I have examined & evaluated the patient, The case was reviewed & discussed with the resident, I agree w/resident's findings & plan - [facility] HPI: 08/10/18 00:33 [place] 47 year old male with PMH HTN, GERD presented to ED for symptomatic hypertension. Pt stated he checked his BP today around 3PM and it was in the 160s systolic, he took two amlodipine 10 mg, but BP increased. ? generalized headache and LUQ pain. He stated the pain feels similar to his GERD. He denied chest pain, shortness of breath, palpitations, cough, lower extremity swelling, weakness, numbness, tingling. - Physicial Exam PE: 08/10/18 00:33 NAD, well appearing, PERRL, EOMI, MMM, nl conjunctiva, anicteric; neck supple. lungs clear, RRR, abdomen soft nontender. PETERSEN x4, no focal neuro deficits. No peripheral edema. normal color for ethnicity, [facility]. - Medical Decision Making 08/10/18 01:50 See HPI for details Vital signs reviewed, +hypertensive Prior notes reviewed, including admissions, discharges and consultations. [facility] without intervention. Pt was admitted to [facility] for HTN and LVHS pattern on EKG 08/06/18-08/08/18. Serial troponins were negative. ECHO 08/06/18 nl LVSF, EF 55-60%. no LVH reported. diagnosed with GERD. Discharged with Amlodipine 10 mg daily and pantoprazole 40 mg daily. Outpatient Cards followup, was seen by Dr Pepper inpatient prior to his discharge yesterday. Likely poor HTN control, took extra dose of amlodipine today, told not to do that and how to measure BP correctly. laboratory results and imaging reviewed, basic labs and lytes wnl, notable for baseline Cr. lytes normal Cardiac panel_neg trop EKG normal sinus rhythm, no interval abnormalities, narrow QRS, ST segments and morphology normal. +LVH Nonspecific T wave abnormalities, repolarization abnormality, TWI diffusely - unchanged from prior. ED course: BP normalizing, 159/106 on recheck, no symptoms, mentating normally, no neuro changes, cp or sob. Dispo: PCP referrals provided, diet modifications, avoid salty or fatty food intake. Instructions provided. Prompt PCP followup indicated, and appt made. 08/10/18 01:52 Heart Score/ECG Review - ECG Impressions Normal ECG: No Comment:: 08/10/18 00:34 EKG normal sinus rhythm, no interval abnormalities, narrow QRS, ST segments and morphology normal. +LVH Nonspecific T wave abnormalities, repolarization abnormality, TWI diffusely - unchanged from prior.
[2018-08-10 00:56] LABS: INR 1.03 (0.83-1.09); PROTHROMBIN TIME (PATIENT) 12.2 SEC (9.7-13.0)
[2018-08-10 00:58] LABS: ACTIVATED PTT 34.6 SECONDS (25.2-36.5)
[2018-08-10 01:04] VITALS: PULSE 80; TEMP 97.8
[2018-08-10 01:05] VITALS: BP 159/106
[2018-08-10 01:09] LABS: ALBUMIN 3.6 g/dl (3.4-5.0); ALK PHOS 68 U/L (45-117); ANION GAP 7 MMOL/L (8-16); BILIRUBIN,TOTAL 0.5 mg/dL (0.2-1); BLOOD UREA NITROGEN 19 mg/dL (7-18); CALCIUM 8.2 mg/dL (8.5-10.1); CHLORIDE 107 mmol/L (98-107); CO2 26 mmol/L (21-32); CREATININE 1.2 mg/dL (0.55-1.3); GLUCOSE,RANDOM 107 mg/dL (74-106); N-TERMINAL BNP 65.3 pg/ml (5-125); POTASSIUM 3.8 mmol/L (3.5-5.1); SGOT/AST 25 U/L (15-37); SGPT/ALT 36 U/L (13-61); SODIUM 139 mmol/L (136-145); TOT PROT 7.5 g/dl (6.4-8.2)
--- NOTE | 2018-08-10 12:57 | EKG ---
Test Reason : Blood Pressure : / mmHG Vent. Rate : 076 BPM Atrial Rate : 076 BPM P-R Int : 156 ms QRS Dur : 096 ms QT Int : 408 ms P-R-T Axes : 044 023 174 degrees QTc Int : 459 ms NORMAL SINUS RHYTHM LEFT VENTRICULAR HYPERTROPHY WITH REPOLARIZATION ABNORMALITY ABNORMAL ECG WHEN COMPARED WITH ECG OF 07-AUG-2018 13:54, NO SIGNIFICANT CHANGE WAS FOUND Confirmed by Navdeep Cantu ([id number]) on 08/10/2018 12:57:09 PM Referred By: Confirmed By:Navdeep Cantu
== END 2018-08-10 01:35 | disposition home or self-care (01) ==
LOC: JER 22:54
PROC: 3E033GC Introduction of Other Therapeutic Substance into Peripheral Vein, Percutaneous Approach (ICD-10-PCS; principal; 2018-08-09)
PROC: 3E0337Z Introduction of Electrolytic and Water Balance Substance into Peripheral Vein, Percutaneous Approach (ICD-10-PCS; 2018-08-09)
DX: I10 Essential (primary) hypertension (principal); R51 Headache
CPT/HCPCS: 36415; 71046-TC-FY; 80053; 82550; 82553; 83880; 84484; 85025; 85610; 85730; 86850; 86900; 86901; 93005; 93010; 99284-25; J7030